=== PATIENT | male | born 1940 | race Caucasian/White ===

== ENCOUNTER 2021-02-14 14:15 | Inpatient (IN) ==
[2021-02-14] MEDS ORDERED: Naloxone 0.4 MG/ML INJ IVP PRN (22:28)
[2021-02-14] MEDS ORDERED: Melatonin 3 MG TABLET PO PRN (22:28)
[2021-02-14] MEDS ORDERED: Ondansetron 4 MG/2 ML VIAL IVP PRN (22:28)
[2021-02-14 23:03] LABS: Hematocrit 34.3 % (37.5-50.1); Hemoglobin 10.9 g/dL (12.9-16.9); Mean Corpuscular HGB Conc 31.8 g/dL (31.6-35.5); Mean Corpuscular Hemoglobin 31.2 pg (28.0-33.3); Mean Corpuscular Volume 98.3 fL (83.0-100.0); Mean Platelet Volume 12.2 fL (9.4-12.4); Platelet Count 101 K/mcL (140-400); Red Blood Count 3.49 M/mcL (4.19-5.50); Red Cell Distribution Width 15.2 % (11.5-14.5); White Blood Count 8.6 K/mcL (4.3-11.1)
[2021-02-14 23:11] LABS: Heparin anti-factor XA UFH < 0.04 IU/mL (0.30-0.70); INR 1.1; Prothrombin Time 12.7 Seconds (9.4-12.1)
[2021-02-15] MEDS ORDERED: *HR* Dextrose 50 % in Water (Syg) 50 ML SYRINGE IVP PRN (01:15)
[2021-02-15] MEDS ORDERED: Dextrose Gel 15 GM/37.5 ML TUBE PO PRN ×2 (01:15)
[2021-02-15] MEDS ORDERED: D5% in Water 1,000 ML IVC PRN (01:15)
[2021-02-15] MEDS: Insulin LISPRO 300 UNITS/3 ML VIAL SUBQ SCH ×3 (06:19→17:43)
[2021-02-15] MEDS ORDERED: Perflutren Lipid Microsphere 1.3 ML in 0.9 % Sodium Chloride 8.7 ML IVP PRN (11:53)
[2021-02-15] MEDS: Aspirin 81 MG TAB.CHEW PO SCH (12:42)
[2021-02-15 17:04] LABS: Mean Corpuscular Volume 98.6 fL (83.0-100.0)
[2021-02-15 17:06] LABS: Hematocrit 34.6 % (37.5-50.1); Immature Platelets 9.2 % (1.1-6.1); Mean Corpuscular HGB Conc 31.8 g/dL (31.6-35.5); Mean Corpuscular Hemoglobin 31.3 pg (28.0-33.3); Mean Platelet Volume 12.5 fL (9.4-12.4); Red Blood Count 3.51 M/mcL (4.19-5.50); Red Cell Distribution Width 15.3 % (11.5-14.5); White Blood Count 9.9 K/mcL (4.3-11.1)
[2021-02-15 17:24] LABS: Albumin 3.4 g/dL (3.5-5.7); Albumin/Globulin Ratio 1.5 (1.1-2.2); Bilirubin,Total 1.2 mg/dL (0.3-1.0); Calcium 9.2 mg/dL (8.6-10.3); Globulin 2.3 g/dL (2.4-3.5); Potassium 4.3 mEq/L (3.5-5.1); Total Protein 5.7 g/dL (6.4-8.9)
[2021-02-15] MEDS ORDERED: Acetaminophen 325 MG TABLET PO PRN (17:36)
[2021-02-15] MEDS ORDERED: *HR* Heparin 5,000 UNIT/ML VIAL IVP PRN ×2 (17:38)
[2021-02-15] MEDS ORDERED: *HR* Heparin 5,000 UNIT/ML VIAL IVP ONE (17:38)
[2021-02-15] MEDS: Heparin 25,000UNIT/250ML 1/2NS 25,000 UNIT/250 ML IV.SOLN IVC SCH (18:37)
[2021-02-16] MEDS: Insulin LISPRO 300 UNITS/3 ML VIAL SUBQ SCH ×4 (00:01→17:38)
[2021-02-16] MEDS: Pantoprazole 40 MG VIAL IVP SCH ×3 (00:01→17:38)
[2021-02-16] MEDS: Aspirin 81 MG TAB.CHEW PO SCH (08:05)
[2021-02-16] MEDS: Isosorbide MONOnitrate (24 HR) 30 MG TAB.ER.24H PO SCH (08:05)
[2021-02-16 09:56] LABS: Mean Corpuscular Volume 98.4 fL (83.0-100.0); Red Cell Distribution Width 15.4 % (11.5-14.5)
[2021-02-16 09:58] LABS: Basophils % 0.2 %; Hematocrit 31.6 % (37.5-50.1); Hemoglobin 10.2 g/dL (12.9-16.9); Immature Granulocytes % 0.4 % (0-4); Immature Platelets 7.9 % (1.1-6.1); Lymphocytes # 0.6 K/mcL (0.6-4.6); Lymphocytes % 6.6 %; Mean Corpuscular HGB Conc 32.3 g/dL (31.6-35.5); Mean Corpuscular Hemoglobin 31.8 pg (28.0-33.3); Mean Platelet Volume 12.5 fL (9.4-12.4); Monocytes # 0.6 K/mcL (0.0-1.3); Monocytes % 6.9 %; Neutrophils # 7.7 K/mcL (1.6-8.9); Red Blood Count 3.21 M/mcL (4.19-5.50); Segmented Neutrophils % 85.9 %
[2021-02-16 10:13] LABS: Platelet Count 98 K/mcL (140-400)
[2021-02-16 10:14] LABS: Calcium 8.8 mg/dL (8.6-10.3)
[2021-02-16] MEDS: 0.9 % Sodium Chloride 1,000 ML IVC SCH (12:45)
[2021-02-16] MEDS: Heparin 25,000UNIT/250ML 1/2NS 25,000 UNIT/250 ML IV.SOLN IVC SCH (19:56)
[2021-02-17] MEDS: Insulin LISPRO 300 UNITS/3 ML VIAL SUBQ SCH ×5 (00:44→22:55)
[2021-02-17] MEDS: 0.9 % Sodium Chloride 1,000 ML IVC SCH ×2 (01:38→15:11)
[2021-02-17] MEDS: Pantoprazole 40 MG VIAL IVP SCH ×2 (05:20→17:46)
[2021-02-17 05:47] LABS: Basophils % 0.3 %; Mean Platelet Volume 12.9 fL (9.4-12.4)
[2021-02-17 05:50] LABS: Hematocrit 27.6 % (37.5-50.1); Hemoglobin 8.7 g/dL (12.9-16.9); Immature Granulocytes % 0.5 % (0-4); Lymphocytes # 0.8 K/mcL (0.6-4.6); Mean Corpuscular HGB Conc 31.5 g/dL (31.6-35.5); Mean Corpuscular Hemoglobin 31.3 pg (28.0-33.3); Mean Corpuscular Volume 99.3 fL (83.0-100.0); Monocytes # 0.6 K/mcL (0.0-1.3); Monocytes % 7.3 %; Neutrophils # 6.1 K/mcL (1.6-8.9); Red Blood Count 2.78 M/mcL (4.19-5.50); Red Cell Distribution Width 15.2 % (11.5-14.5); Segmented Neutrophils % 81.9 %; White Blood Count 7.5 K/mcL (4.3-11.1)
[2021-02-17 05:51] LABS: Platelet Count 90 K/mcL (140-400)
[2021-02-17 06:04] LABS: Calcium 8.6 mg/dL (8.6-10.3); Potassium 4.2 mEq/L (3.5-5.1)
[2021-02-17] MEDS ORDERED: allopurinoL 100 MG TABLET PO SCH (09:00)
[2021-02-17] MEDS: Isosorbide MONOnitrate (24 HR) 30 MG TAB.ER.24H PO SCH (09:11)
[2021-02-17] MEDS: Aspirin 81 MG TAB.CHEW PO SCH (09:11)
[2021-02-17] MEDS: Nitroglycerin 0.4 MG TAB.SUBL SL PRN ×2 (18:21→18:46)
[2021-02-17] MEDS ORDERED: Nitroglycerin 1 INCH/GM PACKET TP ONE (20:52)
[2021-02-18 02:21] VITALS: BP 147/69; PULSE 71; TEMP 98.7; O2SAT 98
[2021-02-18] MEDS ORDERED: Insulin LISPRO 300 UNITS/3 ML VIAL SUBQ SCH (07:30)
== END 2021-02-18 03:55 | disposition short-term general hospital (02) | DRG 377 ==
LOC: 3BNU → SUATTDRO 18:32
PROVIDERS: ADMIT Family Medicine; ATTEND Internal Medicine

== ENCOUNTER 2021-05-18 02:55 | Inpatient (IN) ==
[2021-05-18] MEDS ORDERED: Nitroglycerin 1,000 MCG/5 ML VIAL IV ONE (03:09)
[2021-05-18] MEDS ORDERED: *HR* Heparin 10,000 UNIT/10 ML VIAL ONE (03:09)
[2021-05-18] MEDS ORDERED: Heparin 1,000 UNITS/500 mL 0 ML ONE (03:09)
[2021-05-18] MEDS ORDERED: 0.9 % Sodium Chloride 2,000 ML ONE (03:09)
[2021-05-18] MEDS ORDERED: ISOVUE-370 200 ML INFUS..BTL ONE (03:09)
[2021-05-18] MEDS ORDERED: Nitroglycerin 0.4 MG TAB.SUBL SL PRN (07:53)
[2021-05-18] MEDS ORDERED: Naloxone 0.4 MG/ML INJ IVP PRN (07:54)
[2021-05-18] MEDS ORDERED: *HR* Heparin 5,000 UNIT/ML VIAL IVP PRN ×4 (08:05→11:53)
[2021-05-18] MEDS ORDERED: *HR* Heparin 5,000 UNIT/ML VIAL IVP ONE ×2 (08:05→11:53)
[2021-05-18] MEDS ORDERED: Heparin 25,000UNIT/250ML 1/2NS 25,000 UNIT/250 ML IV.SOLN IVC SCH (08:15)
[2021-05-18] MEDS ORDERED: Isovue-370 500 ML BOTTLE IVP ONE (08:26)
[2021-05-18 08:43] LABS: Basophils # 0.1 K/mcL (0.0-0.2); Basophils % 0.4 %; Hematocrit 31.2 % (37.5-50.1); Hemoglobin 9.8 g/dL (12.9-16.9); Immature Granulocytes % 1.2 % (0-4); Lymphocytes # 0.7 K/mcL (0.6-4.6); Lymphocytes % 6.6 %; Mean Corpuscular HGB Conc 31.4 g/dL (31.6-35.5); Mean Corpuscular Hemoglobin 30.3 pg (28.0-33.3); Mean Corpuscular Volume 96.6 fL (83.0-100.0); Mean Platelet Volume 11.6 fL (9.4-12.4); Monocytes # 0.7 K/mcL (0.0-1.3); Monocytes % 6.1 %; Neutrophils # 9.5 K/mcL (1.6-8.9); Platelet Count 154 K/mcL (140-400); Red Blood Count 3.23 M/mcL (4.19-5.50); Red Cell Distribution Width 15.9 % (11.5-14.5); Segmented Neutrophils % 85.7 %; White Blood Count 11.1 K/mcL (4.3-11.1)
[2021-05-18 08:57] LABS: Prothrombin Time 22.3 Seconds (9.4-12.1)
[2021-05-18 09:05] LABS: Albumin 3.1 g/dL (3.5-5.7); Albumin/Globulin Ratio 1.3 (1.1-2.2); Bilirubin,Total 0.8 mg/dL (0.3-1.0); Chol/HDL Ratio 3.6 (0-4.9); Globulin 2.4 g/dL (2.4-3.5); Magnesium 1.9 mg/dL (1.6-2.6); Potassium 3.5 mEq/L (3.5-5.1); Total Protein 5.5 g/dL (6.4-8.9)
[2021-05-18 09:06] LABS: Heparin anti-factor XA UFH > 2.00 IU/mL (0.30-0.70)
[2021-05-18 09:09] LABS: Troponin I 1.73 ng/mL (< 0.04)
[2021-05-18] MEDS ORDERED: Perflutren Lipid Microsphere 1.3 ML in 0.9 % Sodium Chloride 8.7 ML IVP PRN (09:19)
[2021-05-18] MEDS: Heparin 25,000UNIT/250ML 1/2NS 25,000 UNIT/250 ML IV.SOLN IVC SCH (13:28)
[2021-05-18] MEDS ORDERED: D5% in Water 1,000 ML IVC PRN (13:45)
[2021-05-18] MEDS ORDERED: Dextrose Gel 15 GM/37.5 ML TUBE PO PRN ×2 (13:45)
[2021-05-18] MEDS ORDERED: *HR* Dextrose 50 % in Water (Syg) 50 ML SYRINGE IVP PRN (13:45)
[2021-05-18 13:46] LABS: Hematocrit 30.1 % (37.5-50.1); Hemoglobin 9.4 g/dL (12.9-16.9); Mean Corpuscular HGB Conc 31.2 g/dL (31.6-35.5); Mean Corpuscular Hemoglobin 29.8 pg (28.0-33.3); Mean Corpuscular Volume 95.6 fL (83.0-100.0); Mean Platelet Volume 11.9 fL (9.4-12.4); Platelet Count 156 K/mcL (140-400); Red Blood Count 3.15 M/mcL (4.19-5.50); White Blood Count 10.4 K/mcL (4.3-11.1)
[2021-05-18 13:56] LABS: INR 1.8; Prothrombin Time 20.1 Seconds (9.4-12.1)
[2021-05-18 14:04] LABS: Heparin anti-factor XA UFH 1.98 IU/mL (0.30-0.70)
[2021-05-18] MEDS ORDERED: HYDROcodone BIT/Homatropine LQ 5 MG/5 ML UDC PO PRN (14:42)
[2021-05-18] MEDS ORDERED: Ringers Solution, Lactated 1,000 ML IVC SCH (16:15)
[2021-05-18 16:25] LABS: Adenovirus Not Detected (Not Detect); Bordetella Pertussis Not Detected (Not Detect); Chlamydophila pneumoniae Not Detected (Not Detect); Coronavirus 229E Not Detected (Not Detect); Coronavirus HKU1 Not Detected (Not Detect); Coronavirus NL63 Not Detected (Not Detect); Coronavirus OC43 Not Detected (Not Detect); Human Metapneumovirus Not Detected (Not Detect); Human Rhinovirus/Enterovirus Not Detected (Not Detect); Influenza A Subtype 2009 H1 Not Detected (Not Detect); Influenza B Not Detected (Not Detect); Mycoplasma pneumoniae Not Detected (Not Detect); Parainfluenza Virus 1 Not Detected (Not Detect); Parainfluenza Virus 2 Not Detected (Not Detect); Parainfluenza Virus 3 Not Detected (Not Detect); Parainfluenza Virus 4 Not Detected (Not Detect); Respiratory Syncytial Virus Not Detected (Not Detect); SARS-CoV-2 Not Detected (Not Detect)
[2021-05-18] MEDS: metroNIDAZOLE 500 MG TABLET PO SCH (16:36)
[2021-05-18] MEDS: levoFLOXacin 750 MG TABLET PO SCH (16:36)
[2021-05-18] MEDS: Metoprolol XL (24 HR) Succ 25 MG TAB.ER.24H PO SCH (16:36)
[2021-05-18] MEDS: Isosorbide MONOnitrate (24 HR) 30 MG TAB.ER.24H PO SCH (16:36)
[2021-05-18] MEDS ORDERED: Insulin LISPRO 300 UNITS/3 ML VIAL SUBQ SCH (18:00)
[2021-05-18] MEDS: Ondansetron 4 MG/2 ML VIAL IVP PRN (18:22)
[2021-05-18] MEDS: Ranolazine 500 MG TAB.ER.12H PO SCH (20:37)
[2021-05-19] MEDS: metroNIDAZOLE 500 MG TABLET PO SCH ×3 (00:25→17:07)
[2021-05-19 00:26] LABS: Bilirubin,Urine Negative (Negative); Blood,Urine Large (Negative); Clarity,Urine Clear (Clear); Color,Urine Light-Yellow (Yellow); Glucose,Urine (UA) >=1000 mg/dL (Normal); Ketones,Urine Negative (Negative); Leukocyte Esterase,Urine Negative (Negative); Mucus,Urine Few per lpf (None-Few); Nitrite,Urine Negative (Negative); PH,Urine 5.5 pH Units (5.0-8.0); Protein,Urine Trace mg/dL (Neg-Trace); Specific Gravity,Urine 1.013 (1.010-1.025); Squamous Epithelial Cell,Urine Few per hpf (None-Few); Urobilinogen,Urine Normal (Normal); WBC,Urine 0-3 per hpf (0-3)
[2021-05-19 00:45] LABS: Protein/Creatinine Ratio,Urine 0.17 mg/mg (0.00-0.20); Sodium, Urine 16.8 mEq/L
[2021-05-19 07:18] LABS: Calcium 8.5 mg/dL (8.6-10.3); Potassium 3.4 mEq/L (3.5-5.1)
[2021-05-19] MEDS: Heparin 25,000UNIT/250ML 1/2NS 25,000 UNIT/250 ML IV.SOLN IVC SCH ×2 (09:23→14:52)
[2021-05-19] MEDS: Cholecalciferol (D-3) 1,000 UNIT (25MCG) TABLET PO SCH (09:24)
[2021-05-19] MEDS: Metoprolol XL (24 HR) Succ 25 MG TAB.ER.24H PO SCH (09:24)
[2021-05-19] MEDS: Isosorbide MONOnitrate (24 HR) 30 MG TAB.ER.24H PO SCH (09:24)
[2021-05-19] MEDS: Ranolazine 500 MG TAB.ER.12H PO SCH ×2 (09:24→21:19)
[2021-05-19] MEDS: Sennosides/Docusate Sodium TABLET PO SCH (14:58)
[2021-05-20] MEDS: Morphine Sulfate 2 MG/ML SYRINGE IVP PRN ×2 (00:52→02:54)
[2021-05-20] MEDS: metroNIDAZOLE 500 MG TABLET PO SCH ×3 (01:33→16:24)
[2021-05-20] MEDS: Ondansetron 4 MG/2 ML VIAL IVP PRN ×3 (02:46→16:23)
[2021-05-20 09:21] LABS: Activated Partial Thrombo Time 33.3 Seconds (26.0-36.0)
[2021-05-20 09:24] LABS: Potassium 3.6 mEq/L (3.5-5.1)
[2021-05-20] MEDS: Sennosides/Docusate Sodium TABLET PO SCH (09:24)
[2021-05-20] MEDS: Metoprolol XL (24 HR) Succ 25 MG TAB.ER.24H PO SCH (09:25)
[2021-05-20] MEDS: Isosorbide MONOnitrate (24 HR) 30 MG TAB.ER.24H PO SCH (09:25)
[2021-05-20] MEDS: Cholecalciferol (D-3) 1,000 UNIT (25MCG) TABLET PO SCH (09:25)
[2021-05-20] MEDS: Ranolazine 500 MG TAB.ER.12H PO SCH ×2 (09:25→20:11)
[2021-05-20] MEDS: Heparin 25,000UNIT/250ML 1/2NS 25,000 UNIT/250 ML IV.SOLN IVC SCH (09:25)
[2021-05-20] MEDS: Capmatinib Hydrochloride [Tabrecta] 200 MG Tablet PO SCH (09:28)
[2021-05-20] MEDS ORDERED: Sodium Bicarbonate 150 MEQ in D5% in Water 850 ML IVC SCH (10:12)
[2021-05-20 10:38] LABS: INR 1.4; Prothrombin Time 15.6 Seconds (9.4-12.1)
[2021-05-20] MEDS ORDERED: Sodium Bicarbonate 150 MEQ in D5% in Water 850 ML IVC ONE (11:15)
[2021-05-20 11:31] LABS: Basophils # 0.1 K/mcL (0.0-0.2); Basophils % 0.4 %; Hematocrit 29.6 % (37.5-50.1); Hemoglobin 9.4 g/dL (12.9-16.9); Immature Granulocytes % 1.1 % (0-4); Lymphocytes # 0.7 K/mcL (0.6-4.6); Lymphocytes % 5.7 %; Mean Corpuscular HGB Conc 31.8 g/dL (31.6-35.5); Mean Corpuscular Hemoglobin 30.8 pg (28.0-33.3); Mean Platelet Volume 11.9 fL (9.4-12.4); Monocytes # 0.8 K/mcL (0.0-1.3); Monocytes % 6.4 %; Platelet Count 158 K/mcL (140-400); Red Blood Count 3.05 M/mcL (4.19-5.50); Red Cell Distribution Width 16.3 % (11.5-14.5); Segmented Neutrophils % 86.4 %; White Blood Count 12.7 K/mcL (4.3-11.1)
[2021-05-20] MEDS ORDERED: *HR* Midazolam HCl 2 MG/2 ML VIAL ONE ×2 (12:09→13:15)
[2021-05-20] MEDS ORDERED: *HR* FentaNYL (PF) 100 MCG/2 ML VIAL ONE ×2 (12:09→13:15)
[2021-05-20] MEDS ORDERED: ISOVUE-370 200 ML INFUS..BTL ONE (12:09)
[2021-05-20] MEDS ORDERED: *HR* Heparin 10,000 UNIT/10 ML VIAL ONE (12:09)
[2021-05-20] MEDS ORDERED: 0.9 % Sodium Chloride 1,000 ML ONE (12:09)
[2021-05-20] MEDS ORDERED: Heparin 1,000 UNITS/500 mL 500 ML ONE (12:09)
[2021-05-20] MEDS ORDERED: Nitroglycerin 1,000 MCG/5 ML VIAL IV ONE (12:10)
[2021-05-20] MEDS: *HR* Acetylcysteine 20% 600 MG/3 ML ORAL SYRINGE PO SCH ×2 (12:36→20:11)
[2021-05-20] MEDS ORDERED: Tirofiban 5 MG/100 mL 5 MG/100 ML VIAL IV ONE (14:11)
[2021-05-20] MEDS ORDERED: Furosemide 40 MG/4 ML VIAL ONE (14:17)
[2021-05-20] MEDS: levoFLOXacin 750 MG TABLET PO SCH (16:23)
[2021-05-21] MEDS ORDERED: Nitroglycerin 0.4 MG TAB.SUBL SL PRN (00:29)
[2021-05-21] MEDS: Capmatinib Hydrochloride [Tabrecta] 200 MG Tablet PO SCH ×2 (00:34→09:28)
[2021-05-21] MEDS: metroNIDAZOLE 500 MG TABLET PO SCH ×3 (00:38→18:12)
[2021-05-21] MEDS: Ondansetron 4 MG/2 ML VIAL IVP PRN (02:12)
[2021-05-21 02:27] LABS: Basophils % 0.4 %; Hematocrit 27.9 % (37.5-50.1); Hemoglobin 8.8 g/dL (12.9-16.9); Immature Granulocytes % 0.9 % (0-4); Lymphocytes # 0.6 K/mcL (0.6-4.6); Lymphocytes % 5.6 %; Mean Corpuscular HGB Conc 31.5 g/dL (31.6-35.5); Mean Corpuscular Volume 95.2 fL (83.0-100.0); Mean Platelet Volume 11.9 fL (9.4-12.4); Monocytes # 0.8 K/mcL (0.0-1.3); Monocytes % 7.2 %; Neutrophils # 9.4 K/mcL (1.6-8.9); Platelet Count 142 K/mcL (140-400); Red Blood Count 2.93 M/mcL (4.19-5.50); Red Cell Distribution Width 16.2 % (11.5-14.5); Segmented Neutrophils % 85.9 %
[2021-05-21 02:36] LABS: Calcium 8.5 mg/dL (8.6-10.3); Potassium 3.9 mEq/L (3.5-5.1)
[2021-05-21] MEDS: Heparin 25,000UNIT/250ML 1/2NS 25,000 UNIT/250 ML IV.SOLN IVC SCH (06:41)
[2021-05-21] MEDS ORDERED: Ringers Solution, Lactated 500 ML IVC SCH (08:00)
[2021-05-21] MEDS: *HR* Acetylcysteine 20% 600 MG/3 ML ORAL SYRINGE PO SCH ×2 (09:25→20:02)
[2021-05-21] MEDS: Isosorbide MONOnitrate (24 HR) 60 MG TAB.ER.24H PO SCH (09:28)
[2021-05-21] MEDS: Metoprolol XL (24 HR) Succ 25 MG TAB.ER.24H PO SCH (09:29)
[2021-05-21] MEDS: Cholecalciferol (D-3) 1,000 UNIT (25MCG) TABLET PO SCH (09:29)
[2021-05-21] MEDS: Ranolazine 500 MG TAB.ER.12H PO SCH ×2 (09:29→20:02)
[2021-05-21] MEDS: Sennosides/Docusate Sodium TABLET PO SCH (09:29)
[2021-05-22] MEDS: Capmatinib Hydrochloride [Tabrecta] 200 MG Tablet PO SCH ×3 (00:08→19:24)
[2021-05-22] MEDS: metroNIDAZOLE 500 MG TABLET PO SCH ×3 (00:55→20:32)
[2021-05-22] MEDS ORDERED: Acetaminophen 325 MG TABLET PO PRN (02:21)
[2021-05-22 05:03] LABS: Basophils % 0.3 %; Hematocrit 27.1 % (37.5-50.1); Hemoglobin 8.9 g/dL (12.9-16.9); Immature Granulocytes % 0.9 % (0-4); Lymphocytes # 0.5 K/mcL (0.6-4.6); Lymphocytes % 3.8 %; Mean Corpuscular HGB Conc 32.8 g/dL (31.6-35.5); Mean Corpuscular Volume 94.4 fL (83.0-100.0); Mean Platelet Volume 12.8 fL (9.4-12.4); Monocytes # 0.8 K/mcL (0.0-1.3); Monocytes % 5.6 %; Neutrophils # 12.7 K/mcL (1.6-8.9); Platelet Count 102 K/mcL (140-400); Red Blood Count 2.87 M/mcL (4.19-5.50); Red Cell Distribution Width 16.3 % (11.5-14.5); Segmented Neutrophils % 89.4 %; White Blood Count 14.2 K/mcL (4.3-11.1)
[2021-05-22 05:20] LABS: Calcium 8.8 mg/dL (8.6-10.3); Potassium 3.7 mEq/L (3.5-5.1)
[2021-05-22] MEDS: Ondansetron 4 MG/2 ML VIAL IVP PRN (06:36)
[2021-05-22] MEDS ORDERED: Ringers Solution, Lactated 500 ML IVC SCH (08:00)
[2021-05-22] MEDS: Sennosides/Docusate Sodium TABLET PO SCH (08:06)
[2021-05-22] MEDS: Cholecalciferol (D-3) 1,000 UNIT (25MCG) TABLET PO SCH (08:06)
[2021-05-22] MEDS: Isosorbide MONOnitrate (24 HR) 60 MG TAB.ER.24H PO SCH (08:06)
[2021-05-22] MEDS: Ranolazine 500 MG TAB.ER.12H PO SCH ×2 (08:06→19:55)
[2021-05-22] MEDS: Metoprolol XL (24 HR) Succ 25 MG TAB.ER.24H PO SCH (08:07)
[2021-05-22] MEDS: 0.9 % Sodium Chloride 1,000 ML IVC SCH ×2 (10:35→21:50)
[2021-05-22] MEDS: levoFLOXacin 750 MG TABLET PO SCH (14:07)
[2021-05-22] MEDS: Apixaban 5 MG TABLET PO SCH (19:55)
[2021-05-23] MEDS: metroNIDAZOLE 500 MG TABLET PO SCH ×3 (00:54→17:18)
[2021-05-23 05:38] LABS: Basophils % 0.2 %; Hemoglobin 8.7 g/dL (12.9-16.9); Lymphocytes % 3.5 %
[2021-05-23 05:40] LABS: Hematocrit 27.3 % (37.5-50.1); Immature Granulocytes % 0.8 % (0-4); Immature Platelets 12.5 % (1.1-6.1); Lymphocytes # 0.4 K/mcL (0.6-4.6); Mean Corpuscular HGB Conc 31.9 g/dL (31.6-35.5); Mean Corpuscular Hemoglobin 30.5 pg (28.0-33.3); Mean Corpuscular Volume 95.8 fL (83.0-100.0); Mean Platelet Volume 12.8 fL (9.4-12.4); Monocytes # 0.8 K/mcL (0.0-1.3); Monocytes % 6.6 %; Neutrophils # 11.1 K/mcL (1.6-8.9); Red Blood Count 2.85 M/mcL (4.19-5.50); Red Cell Distribution Width 16.3 % (11.5-14.5); Segmented Neutrophils % 88.9 %; White Blood Count 12.5 K/mcL (4.3-11.1)
[2021-05-23 05:54] LABS: Calcium 8.4 mg/dL (8.6-10.3); Potassium 3.8 mEq/L (3.5-5.1)
[2021-05-23 06:54] LABS: Platelet Count 69 K/mcL (140-400)
[2021-05-23 06:57] LABS: Burr Cells 1+ (Not Present); Platelet Estimate Decreased (Normal); Poikilocytosis 1+ (Not Present)
[2021-05-23] MEDS: Isosorbide MONOnitrate (24 HR) 60 MG TAB.ER.24H PO SCH (08:23)
[2021-05-23] MEDS: Cholecalciferol (D-3) 1,000 UNIT (25MCG) TABLET PO SCH (08:23)
[2021-05-23] MEDS: Apixaban 5 MG TABLET PO SCH ×2 (08:24→20:38)
[2021-05-23] MEDS: Metoprolol XL (24 HR) Succ 25 MG TAB.ER.24H PO SCH (08:24)
[2021-05-23] MEDS: Ranolazine 500 MG TAB.ER.12H PO SCH ×2 (08:24→20:38)
[2021-05-23] MEDS: Sennosides/Docusate Sodium TABLET PO SCH (08:24)
[2021-05-23] MEDS: Capmatinib Hydrochloride [Tabrecta] 200 MG Tablet PO SCH ×2 (11:06→20:39)
[2021-05-23] MEDS: Insulin LISPRO 300 UNITS/3 ML VIAL SUBQ SCH ×3 (13:13→20:50)
[2021-05-23] MEDS ORDERED: Insulin LISPRO 300 UNITS/3 ML VIAL SUBQ SCH (16:30)
[2021-05-23] MEDS: Albumin 25% 25gram/100mL 25 GM/100 ML IV.SOLN IVC SCH ×2 (18:45→20:38)
[2021-05-23] MEDS: Melatonin 3 MG TABLET PO PRN (22:44)
[2021-05-24] MEDS: metroNIDAZOLE 500 MG TABLET PO SCH ×3 (01:08→18:03)
[2021-05-24] MEDS ORDERED: Ipratropium/Albuterol Neb 3 ML IH ONE (01:14)
[2021-05-24] MEDS ORDERED: Ipratropium/Albuterol Neb 3 ML ONE (01:28)
[2021-05-24 06:54] LABS: Uric Acid 9.4 mg/dL (2.3-7.6)
[2021-05-24 07:10] LABS: Calcium 8.9 mg/dL (8.6-10.3)
[2021-05-24 07:15] LABS: Hemoglobin 8.3 g/dL (12.9-16.9); Mean Corpuscular Volume 94.9 fL (83.0-100.0)
[2021-05-24 07:16] LABS: Basophils % 0.2 %
[2021-05-24 07:17] LABS: Hematocrit 25.8 % (37.5-50.1); Immature Granulocytes % 0.8 % (0-4); Immature Platelets 13.7 % (1.1-6.1); Lymphocytes # 0.4 K/mcL (0.6-4.6); Lymphocytes % 3.3 %; Mean Corpuscular HGB Conc 32.2 g/dL (31.6-35.5); Mean Corpuscular Hemoglobin 30.5 pg (28.0-33.3); Mean Platelet Volume 11.9 fL (9.4-12.4); Monocytes # 0.7 K/mcL (0.0-1.3); Monocytes % 6.1 %; Neutrophils # 10.4 K/mcL (1.6-8.9); Red Blood Count 2.72 M/mcL (4.19-5.50); Red Cell Distribution Width 16.6 % (11.5-14.5); Segmented Neutrophils % 89.6 %; White Blood Count 11.6 K/mcL (4.3-11.1)
[2021-05-24 07:18] LABS: Platelet Count 56 K/mcL (140-400)
[2021-05-24] MEDS: Ondansetron 4 MG/2 ML VIAL IVP PRN (09:17)
[2021-05-24] MEDS: Apixaban 5 MG TABLET PO SCH ×2 (09:19→22:12)
[2021-05-24] MEDS: Capmatinib Hydrochloride [Tabrecta] 200 MG Tablet PO SCH ×2 (09:20→22:12)
[2021-05-24] MEDS: Isosorbide MONOnitrate (24 HR) 60 MG TAB.ER.24H PO SCH (09:20)
[2021-05-24] MEDS: Sennosides/Docusate Sodium TABLET PO SCH (09:20)
[2021-05-24] MEDS: Ranolazine 500 MG TAB.ER.12H PO SCH ×2 (09:20→22:12)
[2021-05-24] MEDS: Metoprolol XL (24 HR) Succ 25 MG TAB.ER.24H PO SCH (09:20)
[2021-05-24] MEDS: Cholecalciferol (D-3) 1,000 UNIT (25MCG) TABLET PO SCH (09:20)
[2021-05-24] MEDS: Insulin LISPRO 300 UNITS/3 ML VIAL SUBQ SCH ×4 (09:21→20:58)
[2021-05-24] MEDS ORDERED: 0.9 % Sodium Chloride 500 ML IVC SCH ×2 (12:00→15:48)
[2021-05-24] MEDS: levoFLOXacin 750 MG TABLET PO SCH (15:14)
[2021-05-24] MEDS ORDERED: *HR* Enoxaparin 120 MG/0.8 ML SYRINGE SQ ONE (22:15)
[2021-05-25] MEDS: metroNIDAZOLE 500 MG TABLET PO SCH ×3 (00:29→18:35)
[2021-05-25 06:08] LABS: Basophils % 0.2 %; Hemoglobin 8.4 g/dL (12.9-16.9)
[2021-05-25 06:10] LABS: Immature Granulocytes % 0.8 % (0-4); Immature Platelets 15.4 % (1.1-6.1); Lymphocytes # 0.4 K/mcL (0.6-4.6); Lymphocytes % 3.7 %; Mean Corpuscular HGB Conc 32.3 g/dL (31.6-35.5); Mean Corpuscular Hemoglobin 30.9 pg (28.0-33.3); Mean Corpuscular Volume 95.6 fL (83.0-100.0); Mean Platelet Volume 13.9 fL (9.4-12.4); Monocytes # 0.8 K/mcL (0.0-1.3); Monocytes % 6.5 %; Neutrophils # 10.7 K/mcL (1.6-8.9); Red Blood Count 2.72 M/mcL (4.19-5.50); Red Cell Distribution Width 16.4 % (11.5-14.5); Segmented Neutrophils % 88.8 %
[2021-05-25 06:11] LABS: Platelet Count 58 K/mcL (140-400)
[2021-05-25 06:33] LABS: Calcium 8.6 mg/dL (8.6-10.3); Potassium 4.1 mEq/L (3.5-5.1)
[2021-05-25] MEDS: Apixaban 5 MG TABLET PO SCH ×2 (09:48→21:15)
[2021-05-25] MEDS: Isosorbide MONOnitrate (24 HR) 60 MG TAB.ER.24H PO SCH (09:48)
[2021-05-25] MEDS: Ranolazine 500 MG TAB.ER.12H PO SCH ×2 (09:48→21:15)
[2021-05-25] MEDS: Insulin LISPRO 300 UNITS/3 ML VIAL SUBQ SCH ×4 (09:48→21:14)
[2021-05-25] MEDS: Sennosides/Docusate Sodium TABLET PO SCH (09:48)
[2021-05-25] MEDS: Capmatinib Hydrochloride [Tabrecta] 200 MG Tablet PO SCH ×2 (09:48→21:15)
[2021-05-25] MEDS: Metoprolol XL (24 HR) Succ 25 MG TAB.ER.24H PO SCH (09:49)
[2021-05-25] MEDS: Cholecalciferol (D-3) 1,000 UNIT (25MCG) TABLET PO SCH (09:49)
[2021-05-25] MEDS ORDERED: *HR* Heparin 5,000 UNIT/ML VIAL SQ ONE (22:48)
[2021-05-26] MEDS ORDERED: Ipratropium/Albuterol Neb 3 ML ONE (00:05)
[2021-05-26] MEDS: Ipratropium/Albuterol Neb 3 ML IH PRN (00:10)
[2021-05-26] MEDS: metroNIDAZOLE 500 MG TABLET PO SCH ×3 (01:32→20:40)
[2021-05-26 03:11] LABS: Hematocrit 27.6 % (37.5-50.1); Hemoglobin 9.1 g/dL (12.9-16.9); Mean Platelet Volume 13.3 fL (9.4-12.4); Red Cell Distribution Width 16.5 % (11.5-14.5)
[2021-05-26 03:13] LABS: Basophils % 0.2 %; Immature Platelets 12.7 % (1.1-6.1); Lymphocytes # 0.5 K/mcL (0.6-4.6); Lymphocytes % 3.9 %; Mean Corpuscular Hemoglobin 31.2 pg (28.0-33.3); Mean Corpuscular Volume 94.5 fL (83.0-100.0); Monocytes # 0.8 K/mcL (0.0-1.3); Monocytes % 6.4 %; Neutrophils # 10.9 K/mcL (1.6-8.9); Nucleated Red Blood Cells 0.2 /100 WBC (0); Red Blood Count 2.92 M/mcL (4.19-5.50); Segmented Neutrophils % 88.5 %; White Blood Count 12.3 K/mcL (4.3-11.1)
[2021-05-26 03:16] LABS: Platelet Count 80 K/mcL (140-400)
[2021-05-26 03:24] LABS: Calcium 8.6 mg/dL (8.6-10.3); Potassium 4.2 mEq/L (3.5-5.1)
[2021-05-26] MEDS ORDERED: *HR* Heparin 5,000 UNIT/ML VIAL ONE (08:53)
[2021-05-26] MEDS ORDERED: E-Z-PAQUE (BARIUM SULF) SUSP 1 BOTTLE PO ONE (12:23)
[2021-05-26] MEDS ORDERED: E-Z-HD (BARIUM SULF) SUSPENSION PO ONE (12:23)
[2021-05-26] MEDS: Apixaban 5 MG TABLET PO SCH ×2 (12:29→20:51)
[2021-05-26] MEDS: Insulin LISPRO 300 UNITS/3 ML VIAL SUBQ SCH ×4 (12:29→20:51)
[2021-05-26] MEDS: Isosorbide MONOnitrate (24 HR) 60 MG TAB.ER.24H PO SCH (12:30)
[2021-05-26] MEDS: Capmatinib Hydrochloride [Tabrecta] 200 MG Tablet PO SCH ×2 (12:30→20:51)
[2021-05-26] MEDS: Metoprolol XL (24 HR) Succ 25 MG TAB.ER.24H PO SCH (12:31)
[2021-05-26] MEDS: Ranolazine 500 MG TAB.ER.12H PO SCH ×2 (12:31→20:51)
[2021-05-26] MEDS: Cholecalciferol (D-3) 1,000 UNIT (25MCG) TABLET PO SCH (12:31)
[2021-05-26] MEDS: Sennosides/Docusate Sodium TABLET PO SCH (12:31)
[2021-05-26 12:55] LABS: Hepatitis B Surface Antibody < 3.10 mIU/mL
[2021-05-26 13:05] LABS: Hepatitis B Surface Antigen Nonreactive (Nonreactive)
[2021-05-26] MEDS ORDERED: 0.9 % Sodium Chloride 250 ML IVC PRN (13:05)
[2021-05-26] MEDS ORDERED: *HR* Heparin 10,000 UNIT/10 ML VIAL IV PRN (13:11)
[2021-05-26] MEDS ORDERED: 0.9 % Sodium Chloride 1,000 ML PRIME SCH (13:15)
[2021-05-26] MEDS: levoFLOXacin 500 MG TABLET PO SCH (14:02)
[2021-05-27] MEDS: metroNIDAZOLE 500 MG TABLET PO SCH ×4 (00:01→19:27)
[2021-05-27] MEDS: Morphine Sulfate 2 MG/ML SYRINGE IVP PRN (01:20)
[2021-05-27 06:39] LABS: Basophils % 0.3 %; Mean Corpuscular HGB Conc 32.9 g/dL (31.6-35.5); Mean Corpuscular Hemoglobin 31.2 pg (28.0-33.3); Nucleated Red Blood Cells 0.2 /100 WBC (0); Segmented Neutrophils % 88.4 %
[2021-05-27 06:41] LABS: Hematocrit 28.6 % (37.5-50.1); Hemoglobin 9.4 g/dL (12.9-16.9); Immature Granulocytes % 1.2 % (0-4); Immature Platelets 12.7 % (1.1-6.1); Lymphocytes # 0.3 K/mcL (0.6-4.6); Lymphocytes % 2.5 %; Mean Platelet Volume 13.1 fL (9.4-12.4); Monocytes # 0.9 K/mcL (0.0-1.3); Monocytes % 7.6 %; Neutrophils # 10.3 K/mcL (1.6-8.9); Red Blood Count 3.01 M/mcL (4.19-5.50); Red Cell Distribution Width 16.6 % (11.5-14.5); White Blood Count 11.6 K/mcL (4.3-11.1)
[2021-05-27 06:48] LABS: Platelet Count 78 K/mcL (140-400)
[2021-05-27 06:59] LABS: Calcium 8.5 mg/dL (8.6-10.3)
[2021-05-27] MEDS: Apixaban 5 MG TABLET PO SCH ×2 (08:19→19:22)
[2021-05-27] MEDS: Sennosides/Docusate Sodium TABLET PO SCH (08:19)
[2021-05-27] MEDS: Cholecalciferol (D-3) 1,000 UNIT (25MCG) TABLET PO SCH (08:19)
[2021-05-27] MEDS: Ranolazine 500 MG TAB.ER.12H PO SCH ×2 (08:19→19:23)
[2021-05-27] MEDS: Capmatinib Hydrochloride [Tabrecta] 200 MG Tablet PO SCH (08:20)
[2021-05-27] MEDS: Isosorbide MONOnitrate (24 HR) 60 MG TAB.ER.24H PO SCH (08:20)
[2021-05-27] MEDS: Metoprolol XL (24 HR) Succ 25 MG TAB.ER.24H PO SCH (08:20)
[2021-05-27] MEDS: Insulin LISPRO 300 UNITS/3 ML VIAL SUBQ SCH ×4 (08:20→19:46)
[2021-05-27] MEDS ORDERED: 0.9 % Sodium Chloride 250 ML IVC PRN (09:25)
[2021-05-27] MEDS ORDERED: *HR* Heparin 10,000 UNIT/10 ML VIAL IV PRN (09:25)
[2021-05-28] MEDS: Ranolazine 500 MG TAB.ER.12H PO SCH ×2 (08:54→22:51)
[2021-05-28] MEDS: Isosorbide MONOnitrate (24 HR) 60 MG TAB.ER.24H PO SCH (08:55)
[2021-05-28] MEDS: Apixaban 5 MG TABLET PO SCH ×2 (08:55→22:56)
[2021-05-28] MEDS: Metoprolol XL (24 HR) Succ 25 MG TAB.ER.24H PO SCH (08:56)
[2021-05-28] MEDS: Sennosides/Docusate Sodium TABLET PO SCH (08:58)
[2021-05-28] MEDS: metroNIDAZOLE 500 MG TABLET PO SCH ×2 (08:58→20:01)
[2021-05-28] MEDS: Cholecalciferol (D-3) 1,000 UNIT (25MCG) TABLET PO SCH (08:58)
[2021-05-28] MEDS: Insulin LISPRO 300 UNITS/3 ML VIAL SUBQ SCH ×4 (09:02→22:50)
[2021-05-28] MEDS ORDERED: 0.9 % Sodium Chloride 250 ML IVC PRN (09:50)
[2021-05-28] MEDS ORDERED: *HR* Heparin 10,000 UNIT/10 ML VIAL IV PRN ×2 (09:50)
[2021-05-28] MEDS: levoFLOXacin 500 MG TABLET PO SCH (13:45)
[2021-05-28 15:57] LABS: Calcium 6.9 mg/dL (8.6-10.3)
[2021-05-28] MEDS: Melatonin 3 MG TABLET PO PRN (22:56)
[2021-05-29] MEDS: metroNIDAZOLE 500 MG TABLET PO SCH ×4 (01:24→19:08)
[2021-05-29 06:45] LABS: Hemoglobin 9.2 g/dL (12.9-16.9); Mean Corpuscular HGB Conc 31.7 g/dL (31.6-35.5)
[2021-05-29 06:47] LABS: Basophils % 0.4 %; Immature Granulocytes % 1.1 % (0-4); Immature Platelets 12.6 % (1.1-6.1); Lymphocytes # 0.5 K/mcL (0.6-4.6); Lymphocytes % 4.1 %; Mean Corpuscular Hemoglobin 30.5 pg (28.0-33.3); Mean Platelet Volume 12.7 fL (9.4-12.4); Monocytes # 0.9 K/mcL (0.0-1.3); Neutrophils # 9.4 K/mcL (1.6-8.9); Platelet Count 63 K/mcL (140-400); Red Blood Count 3.02 M/mcL (4.19-5.50); Red Cell Distribution Width 17.8 % (11.5-14.5); Segmented Neutrophils % 86.4 %; White Blood Count 10.9 K/mcL (4.3-11.1)
[2021-05-29 07:04] LABS: Calcium 8.3 mg/dL (8.6-10.3); Potassium 3.7 mEq/L (3.5-5.1)
[2021-05-29] MEDS: Insulin LISPRO 300 UNITS/3 ML VIAL SUBQ SCH ×4 (09:44→23:02)
[2021-05-29] MEDS: Apixaban 5 MG TABLET PO SCH ×2 (09:58→23:00)
[2021-05-29] MEDS: Morphine Sulfate 2 MG/ML SYRINGE IVP PRN (10:26)
[2021-05-29] MEDS: Ranolazine 500 MG TAB.ER.12H PO SCH ×2 (12:17→23:03)
[2021-05-29] MEDS: Metoprolol XL (24 HR) Succ 25 MG TAB.ER.24H PO SCH (12:17)
[2021-05-29] MEDS: Cholecalciferol (D-3) 1,000 UNIT (25MCG) TABLET PO SCH (12:17)
[2021-05-29] MEDS: Sennosides/Docusate Sodium TABLET PO SCH (12:17)
[2021-05-29] MEDS: Isosorbide MONOnitrate (24 HR) 60 MG TAB.ER.24H PO SCH (12:17)
[2021-05-29] MEDS: Albumin 25% 25gram/100mL 25 GM/100 ML IV.SOLN IVPB SCH ×2 (13:45→23:02)
[2021-05-29] MEDS ORDERED: polyethylene glycoL 3350 17 GM POWD.PACK PO PRN (17:35)
[2021-05-29] MEDS ORDERED: Morphine Sulfate 2 MG/ML SYRINGE IVP ONE (21:31)
[2021-05-30] MEDS: metroNIDAZOLE 500 MG TABLET PO SCH ×2 (02:29→08:45)
[2021-05-30] MEDS: Morphine Sulfate 2 MG/ML SYRINGE IVP PRN (05:46)
[2021-05-30] MEDS: Albumin 25% 25gram/100mL 25 GM/100 ML IV.SOLN IVPB SCH ×2 (06:26→12:17)
[2021-05-30] MEDS: Insulin LISPRO 300 UNITS/3 ML VIAL SUBQ SCH ×2 (08:45→12:49)
[2021-05-30] MEDS: Apixaban 5 MG TABLET PO SCH (08:45)
[2021-05-30] MEDS ORDERED: GI Cocktail 40 ML EACH PO ONE (09:17)
[2021-05-30] MEDS ORDERED: Fluconazole 200 MG/100 ML 200 MG/100 ML BAG IVPB SCH (09:30)
[2021-05-30 09:43] LABS: Basophils % 0.3 %; Hematocrit 27.3 % (37.5-50.1); Hemoglobin 8.5 g/dL (12.9-16.9); Immature Granulocytes % 1.3 % (0-4); Lymphocytes # 0.4 K/mcL (0.6-4.6); Lymphocytes % 3.6 %; Mean Corpuscular HGB Conc 31.1 g/dL (31.6-35.5); Mean Corpuscular Hemoglobin 30.5 pg (28.0-33.3); Mean Corpuscular Volume 97.8 fL (83.0-100.0); Monocytes # 0.8 K/mcL (0.0-1.3); Monocytes % 7.7 %; Neutrophils # 8.8 K/mcL (1.6-8.9); Nucleated Red Blood Cells 0.3 /100 WBC (0); Platelet Count 46 K/mcL (140-400); Red Blood Count 2.79 M/mcL (4.19-5.50); Red Cell Distribution Width 17.9 % (11.5-14.5); Segmented Neutrophils % 87.1 %; White Blood Count 10.1 K/mcL (4.3-11.1)
[2021-05-30 10:02] LABS: Calcium 9.1 mg/dL (8.6-10.3); Potassium 4.5 mEq/L (3.5-5.1)
[2021-05-30] MEDS: Sennosides/Docusate Sodium TABLET PO SCH (10:35)
[2021-05-30] MEDS: Ranolazine 500 MG TAB.ER.12H PO SCH (10:35)
[2021-05-30] MEDS: Metoprolol XL (24 HR) Succ 25 MG TAB.ER.24H PO SCH (10:48)
[2021-05-30] MEDS: Cholecalciferol (D-3) 1,000 UNIT (25MCG) TABLET PO SCH (10:49)
[2021-05-30] MEDS: Ipratropium/Albuterol Neb 3 ML IH PRN (11:52)
[2021-05-30] MEDS ORDERED: Furosemide 40 MG/4 ML VIAL IVP ONE (14:18)
[2021-05-30 14:22] VITALS: BP 107/71; PULSE 97; TEMP 98.3; O2SAT 98
[2021-05-31] MEDS ORDERED: Fluconazole 100 MG/50 ML 100 MG/50 ML BAG IVPB SCH (12:00)
== END 2021-05-30 20:29 | disposition expired | DRG 246 ==
LOC: 3NENU 07:04 → INTOOBSV 07:04 → SUATTDRO 15:40
PROVIDERS: ADMIT Internal Medicine Cardiovascular Disease; ATTEND Internal Medicine